=== PATIENT | male | born 1945 | race Caucasian/White ===

== ENCOUNTER → 2021-06-04 | Outpatient (CLI) | payer OTHER | LOC: SJCVC 15:28 | PROVIDERS: ATTEND Internal Medicine | DX: R94.31 Abnormal electrocardiogram [ECG] [EKG] (principal); I45.2 Bifascicular block; I48.0 Paroxysmal atrial fibrillation; I51.0 Cardiac septal defect, acquired; Z13.220 Encounter for screening for lipoid disorders; R06.00 Dyspnea, unspecified; I10 Essential (primary) hypertension; G47.30 Sleep apnea, unspecified; Z87.891 Personal history of nicotine dependence; Z79.899 Other long term (current) drug therapy ==

== ENCOUNTER → 2021-06-25 | Outpatient (CLI) | payer OTHER | LOC: SJCVC 15:25 | PROVIDERS: ATTEND Internal Medicine | DX: I48.0 Paroxysmal atrial fibrillation (principal); I10 Essential (primary) hypertension; G47.30 Sleep apnea, unspecified; Z79.82 Long term (current) use of aspirin; Z79.899 Other long term (current) drug therapy; Z87.891 Personal history of nicotine dependence; Z82.49 Family history of ischemic heart disease and other diseases of the circulatory system ==

== ENCOUNTER → 2021-07-16 | Outpatient (CLI) | payer OTHER | LOC: SJCVC 14:44 | PROVIDERS: ATTEND Internal Medicine | DX: I48.91 Unspecified atrial fibrillation (principal); Z87.891 Personal history of nicotine dependence; Z79.82 Long term (current) use of aspirin; Z79.899 Other long term (current) drug therapy ==

== ENCOUNTER → 2021-08-12 | Outpatient (CLI) | payer OTHER ==
[~2021-08-12] VITALS: Ht 177.8 cm; Wt 100.5 kg
[~2021-08-12] MED LIST: ASA81BEC PO; ATENOLOL 25 MG25 M1 PO; CARDURA2 MG PO; ELIQUIS5 MG PO; FISH OIL 1,001000 M3 PO; LORATIDINE 10 M10 M1 PO; NORVASC10 MG PO; SUPER THERAVIT1 EACH PO; TRIAMTERENE/HCT1 CA1 PO
[2021-08-12 07:32] VITALS: BP 127/86
--- NOTE | 2021-08-12 09:01 | TEE ---
[facility] [place] [address] TRANSESOPHAGEAL ECHOCARDIOGRAM Name: JG SCHULTE Room #: REG [facility]#: [id number] Admission: 08/12/21 Attend Phys: Anselmo Pastrana MD, Discharge: Date of : 45 Report #: [id number] THIS REPORT FOR: cc: Donaldo Lozano MD, John MD Santiago,Anselmo ARGUETA [facility] ~ APPROVED REPORT Study performed: 08/12/2021 08:01:01 EXAM: Comprehensive 2D, Doppler, and color-flow Echocardiogram Patient Location: Out-Patient Room #: 9 Status: routine BSA: 2.18 HR: 144 bpm BP: 150/96 mmHg Rhythm: Atrial Fibrillation Other Information Study Quality: Good Indications Atrial Fibrillation Echo Enhancing Agent Indication: Rule out Shunt Agent(s) / Amount(s) Used: Agitated Saline 7 cc Procedure After obtaining informed consent, patient underwent transesophageal echo in the [employer]. Type of Sedation : Conscious Sedation Sedation was administered by Nurse. Sedation start time: 809 Case end Time: 819 Sedation was achieved intravenously with: Versed (4mg) Fentanyl (50mcg) Transesophageal probe was inserted and advanced into esophagus without difficulty by Anselmo Pastrana MD. Echo enhancement indication: R/O Septal defect. Echo enhancement agent administered: Agitated Saline The BIA was performed without complications. Synchronized Cardioversion acheived with 200 Joules after 1 [facility] [address] [place] [address] TRANSESOPHAGEAL ECHOCARDIOGRAM Name: JG SCHULTE Room #: REG CL [facility]#: [id number] Admission: 08/12/21 Attend Phys: Anselmo Pastrana, Discharge: Date of : 45 Report #: [id number] attempt(s). Rhythm following Synchronized Cardioversion: Normal Sinus Rhythm Throughout the procedure, the blood pressure, pulse oximetry, cardiac rhythm, and rate were monitored. The patient tolerated the procedure without adverse effects. Recovery from conscious sedation was uneventful and vital signs were stable. Left Ventricle The left ventricle is normal size. There is global hypokinesis of the left ventricle. There is normal left ventricular wall thickness. Left ventricular systolic function is mild to moderately decreased. LVEF is 40%. Right Ventricle The right ventricle is normal size. The right ventricular systolic function is normal. Atria Left atrium is dilated. Interatrial septum is intact without evidence of ASD or PFO. The right atrium size is normal. Aortic Valve The aortic valve is normal in structure. No aortic regurgitation is present. There is no aortic valvular stenosis. Mitral Valve The mitral valve is normal in structure. Moderate mitral regurgitation. No evidence of mitral valve stenosis. Tricuspid Valve The tricuspid valve is normal in structure. Mild tricuspid regurgitation. Pulmonic Valve The pulmonary valve is normal in structure. There is no pulmonic valvular regurgitation. Great Vessels The aortic root is normal in size. Pericardium There is no pericardial effusion. <Conclusion> Consent was obtained [facility] [address] [address] TRANSESOPHAGEAL ECHOCARDIOGRAM Name: JG SCHULTE Room #: REG [id number] Admission: 08/12/21 Attend Phys: Anselmo Pastrana, Discharge: Date of : 45 Report #: [id number] Timeout performed After appropriate sedation esophageal probe was advanced without difficulty Left atrial appendage moderate size no clot or mass detected Left atrium moderately/severely dilated Moderately dilated right atrium Normal left ventricular size/wall thickness Ejection fraction 40% Normal aortic valve structure and function Moderate/central mitral valve insufficiency Trace tricuspid valve insufficiency Minimal calcification throughout the aorta No pericardial effusion No evidence of ASD/VSD by color flow/bubble study Patient was shocked with 120/150/2 100 J in a biphasic mode Patient converted to sinus rhythm Patient tolerated the procedure well Twelve-lead ECG pending <ELECTRONICALLY SIGNED> By: Anselmo Pastrana MD, FACC 08/12/21900 0 0 Anselmo Pastrana MD, FACC /INF
--- NOTE | 2021-08-12 13:35 | EKG ---
[place] [address] [facility] [employer] [place] [address] ELECTROCARDIOGRAM REPORT Name: JG SCHULTE Room #: REG [facility] [id number] Admission: 08/12/21 Attend Phys: Anselmo Pastrana MD, Discharge: Date of : 45 Report #: [id number] [facility] Test Date: 2021-08-12 Test Time: 08:39:38 Pat Name: JG SCHULTE Department: Room: Gender: Director Of Medicare: ANNAMARIA : 1945 Requested By: Anselmo Pastrana Order Number: [id number] MD: Anselmo Pastrana Measurements Intervals [place] Rate: 72 P: 45 DC: 217 QRS: -39 QRSD: 103 T: 28 QT: 434 QTc: 476 Interpretive Statements Sinus rhythm Borderline prolonged DC interval Left axis deviation Abnormal R-wave progression, late transition No previous ECG available for comparison Electronically Signed On 08-12-2021 13:35:08 CDT by Anselmo Pastrana [email or web address] <ELECTRONICALLY SIGNED> By: Anselmo Pastrana MD, [facility] 08/12/21 1335 0839 0839 Anselmo Pastrana MD, FACMinda /EPI
== END | disposition home or self-care (01) ==
LOC: CATH 06:18
PROVIDERS: ATTEND Internal Medicine
DX: I48.91 Unspecified atrial fibrillation (principal); I08.1 Rheumatic disorders of both mitral and tricuspid valves; I10 Essential (primary) hypertension; G47.30 Sleep apnea, unspecified; Z98.890 Other specified postprocedural states; Z79.899 Other long term (current) drug therapy; Z79.01 Long term (current) use of anticoagulants; Z87.891 Personal history of nicotine dependence; Z90.49 Acquired absence of other specified parts of digestive tract

== ENCOUNTER → 2021-08-19 | Outpatient (CLI) | payer OTHER | LOC: SJCVC 14:30 | PROVIDERS: ATTEND Internal Medicine | DX: R94.31 Abnormal electrocardiogram [ECG] [EKG] (principal); R00.0 Tachycardia, unspecified; I44.1 Atrioventricular block, second degree; I49.3 Ventricular premature depolarization; I45.2 Bifascicular block; I48.91 Unspecified atrial fibrillation; I10 Essential (primary) hypertension; G47.30 Sleep apnea, unspecified; Z82.49 Family history of ischemic heart disease and other diseases of the circulatory system; Z87.891 Personal history of nicotine dependence; Z79.899 Other long term (current) drug therapy ==

== ENCOUNTER → 2021-09-16 | Outpatient (CLI) | payer OTHER | LOC: SJCVC 14:38 | PROVIDERS: ATTEND Internal Medicine | DX: I44.4 Left anterior fascicular block (principal); R94.31 Abnormal electrocardiogram [ECG] [EKG]; I48.91 Unspecified atrial fibrillation; G47.30 Sleep apnea, unspecified; I10 Essential (primary) hypertension; Z87.891 Personal history of nicotine dependence; Z79.899 Other long term (current) drug therapy ==

== ENCOUNTER → 2021-10-21 | Outpatient (CLI) | payer OTHER | END | disposition home or self-care (01) | LOC: SJCVC 14:39 | PROVIDERS: ATTEND Internal Medicine | DX: I48.91 Unspecified atrial fibrillation (principal); R94.31 Abnormal electrocardiogram [ECG] [EKG]; I10 Essential (primary) hypertension; G47.33 Obstructive sleep apnea (adult) (pediatric); Z79.899 Other long term (current) drug therapy; Z87.891 Personal history of nicotine dependence ==